=== PATIENT | female | born 1950 | race Caucasian/White ===

== ENCOUNTER → 2022-10-17 | Outpatient (CLI) | payer MEDICARE, OTHER, SELFPAY ==
[2022-10-20 18:07] LABS: Red Blood Cell Count Test/G6PD 3.94 x10E6/uL (3.77-5.28)
[2022-10-21 11:07] LABS: G6PD Quant Test 305 (127-427)
== END | disposition home or self-care (01) ==
PROVIDERS: Visit Provider Nurse Practitioner Family
DX: B60.09 Other babesiosis (principal)
CPT/HCPCS: 82955